=== PATIENT | male | born 1970 | race Caucasian/White ===

== ENCOUNTER 2020-05-03 21:33 | Emergency (ER) | payer OTHER ==
[~2020-05-03] VITALS: Ht 177.8 cm; Wt 88.0 kg
[~2020-05-03 21:33] MED LIST: CATAFLAM50 MG PO
[2020-05-03] MEDS ORDERED: DICLOFENAC SODI75 MG PO (21:48)
[2020-05-03] MEDS ORDERED: NORFLEX100MG PO (21:48)
== END 2020-05-03 22:03 | disposition home or self-care (01) ==
LOC: ER 21:33
DX: M54.5 Low back pain (principal)